=== PATIENT | male | born 1955 ===

== ENCOUNTER 2019-11-20 20:31 | Emergency (ER) | payer BC ==
[~2019-11-20] VITALS: Ht 180.3 cm; Wt 66.4 kg
[2019-11-20] MEDS ORDERED: ADENOSINE 6 MG/2 ML ONE (20:40)
--- NOTE | 2019-11-20 20:48 | NUR ---
PLEASANT GENTLEMAN ARRIVES VIA PTVT AUTO FROM [facility], ONSET SVT AT 1600 TODAY, DROVE HERE, IV ESTABLISHED, FLUIDS INFUSING, DR MIX AT BEDSIDE, ADENOSINE 6MG FIVEN IVP AND PT RATE REDUCED FROM 200+ TO 90'S
--- NOTE | 2019-11-20 20:56 | NUR ---
Bedside report received from Blu SEVILLA.
--- NOTE | 2019-11-20 20:57 | NUR ---
report to ROEL Swanson. blood drawn. EKG done. sinus @ 85/min.
[2019-11-20] MEDS ORDERED: ADENOSINE 6 MG/2 ML IVPush ONE (21:00)
[2019-11-20] MEDS ORDERED: SODIUM CHLORIDE FLUSH 10ML SYR IVF ONE (21:00)
--- NOTE | 2019-11-20 21:16 | NUR ---
Pt placed on nuclear monitoring technician, pulse ox, and b/p cuff. Pt denies any cp at this time, blankets provided, resting quietly at this time.
[2019-11-20 21:26] LABS: BASOPHILS # (AUTO) 0.04 x10^3/uL (0-0.1); BASOPHILS % (AUTO) 1 % (0-1); EOSINOPHILS # (AUTO) 0.07 x10^3/uL (0-0.4); EOSINOPHILS % (AUTO) 1 % (1-7); LYMPHOCYTES # (AUTO) 1.73 x10^3/uL (1-3.4); LYMPHOCYTES % (AUTO) 19 % (22-44); MD NO; MEAN CORPUSCULAR HGB CONC 33.2 g/dL (33.2-36.2); MEAN CORPUSCULAR VOLUME 99.3 fL (81-97); MEAN PLATELET VOLUME 8.1 fL (7.4-10.4); MONOCYTES # (AUTO) 0.86 x10^3/uL (0.2-0.8); MONOCYTES % (AUTO) 9 % (2-9); NEUTROPHILS # (AUTO) 6.46 x10^3/uL (1.8-6.8); NEUTROPHILS % (AUTO) 71 % (42-75); PLATELET COUNT 230 x10^3/uL (130-400); RED BLOOD COUNT 4.49 x10^6/uL (4.38-5.82); RED CELL DISTRIBUTION WIDTH 12.9 % (9.4-14.8)
[2019-11-20 21:31] LABS: ALBUMIN 3.3 g/dL (3.4-5.0); ANION GAP 4 mmol/L (5-15); CALCIUM 8.6 mg/dL (8.5-10.1); CHLORIDE 112 mmol/L (98-107)
[2019-11-20 21:36] LABS: ALANINE AMINOTRANSFERASE 39 U/L (12-78); ALKALINE PHOSPHATASE 74 U/L (45-117); BILIRUBIN,TOTAL 1.1 mg/dL (0.2-1.0); CREATININE 1.45 mg/dL (0.7-1.3); TOTAL PROTEIN 6.4 g/dL (6.4-8.2); TROPONIN I 0.019 ng/mL (0.000-0.045)
[2019-11-20 23:12] VITALS: BP 111/77
== END 2019-11-20 23:14 | disposition home or self-care (01) ==
LOC: ED 21:08
DX: I47.1 Supraventricular tachycardia (principal); R00.2 Palpitations; Z90.89 Acquired absence of other organs
CPT/HCPCS: 36415; 71045; 80053; 84484; 85025; 93005; 99285; J0153

== ENCOUNTER 2020-06-13 19:47 | Emergency (ER) | payer BC ==
[~2020-06-13] VITALS: Ht 180.3 cm; Wt 68.5 kg
[2020-06-13] MEDS ORDERED: ADENOSINE 6 MG/2 ML ONE ×2 (19:59→20:01)
--- NOTE | 2020-06-13 20:03 | NUR ---
6 of adenosine given
--- NOTE | 2020-06-13 20:12 | NUR ---
pt to room from triage polaced on all monitors and zoll pt hr 200 dr hewitt at bedside piv placed adenosine 56 mg ivp per md, pt converted to sr, pt in nad vss
[2020-06-13] MEDS ORDERED: ADENOSINE 6 MG/2 ML IVPush ONE (20:30)
--- NOTE | 2020-06-13 20:32 | NUR ---
report to bill
--- NOTE | 2020-06-13 20:48 | NUR ---
DR. VILLAGRAN NOTIFIED OF PATIENT REFUSING LABS TO BE DRAWN. MYSELF AND JENY RN IN TO EXPLAIN TO PATIENT WHY DRAWING LABS IS AN IMPORT PART OF HIS CARE TO DETERMINE IF HIS SVT WAS CAUSED BY ELECTROLYTE IMBALANCE. PLAN IS TO OBSERVE PATIENT FOR 30-40 MINUTES LONGER. PATIENT REMAINS IN NSR IN THE 80'S
--- NOTE | 2020-06-13 21:25 | NUR ---
DISCHARGE INSTRUCTIONS REVIEWED WITH PATIENT. NO FURTHER QUESTIONS. HR AND RHYTHM HAS STAYED NSR IN 70-80'S. STEADY GAIT TO REGISTRATION DESK. ALL PERSONAL BELONGINGS WITH PATIENT ON DC. IV REMOVED PER DC PROTOCOL. PATIENT REFUSED PRESSURE DRESSING WITH THIS REMOVAL STATING "I DONT BLEED"
[2020-06-13 21:53] VITALS: BP 102/74
== END 2020-06-13 21:56 | disposition home or self-care (01) ==
LOC: ED 21:25
DX: I47.1 Supraventricular tachycardia (principal); Z90.49 Acquired absence of other specified parts of digestive tract
CPT/HCPCS: 93005; 99283; 99285